=== PATIENT | male | born 2005 | race Hispanic/Latino ===

== ENCOUNTER 2024-06-01 15:39 | Emergency (ER) | payer BC ==
[~2024-06-01] VITALS: Ht 180.3 cm; Wt 83.9 kg
[2024-06-01 15:41] VITALS: BP 162/103; PULSE 112; RESP 16; TEMP 98.2
--- NOTE | 2024-06-01 16:07 | HMCIMG ---
CHEST 1VW HISTORY: Chest pain COMPARISON: None FINDINGS: A frontal projection of the chest was obtained. No acute pulmonary infiltrates is seen. The heart is normal in size. Prominent interstitial markings are seen. No evidence of aortic calcification is seen. IMPRESSION: 1. No acute pulmonary infiltrate is seen. Prominent interstitial markings.
[2024-06-01 16:12] LABS: BASOPHILS # (AUTO) 0.02 K/uL (0.00-0.20); BASOPHILS % (AUTO) 0.3 % (0.0-5.0); EOSINOPHILS # (AUTO) 0.05 K/uL (0.00-0.70); EOSINOPHILS % (AUTO) 0.8 % (0.0-8.0); HEMATOCRIT 44.9 % (42-54); IMMATURE GRANULOCYTE ABSOLUTE 0.02 K/uL (0-1); LYMPHOCYTES # (AUTO) 2.3 K/uL (1.0-4.8); LYMPHOCYTES % (AUTO) 37.9 % (21.0-51.0); MEAN CORPUSCULAR HEMOGLOBIN 28.5 pg (27.0-33.0); MEAN CORPUSCULAR HGB CONC 33.2 g/dL (32.0-36.0); MONOCYTES # (AUTO) 0.6 K/uL (0.1-1.0); MONOCYTES % (AUTO) 9.6 % (3.0-13.0); NEUTROPHILS % (AUTO) 51.1 % (40.0-77.0); PLATELET COUNT (AUTO) 228 K/uL (130-400); RED BLOOD CELL COUNT(AUTO) 5.22 MIL/uL (4.50-6.20); RED CELL DISTRIBUTION WIDTH 12.7 % (11.0-15.5); WHITE BLOOD COUNT (AUTO) 5.9 K/uL (4.8-10.8)
[2024-06-01 16:23] LABS: POTASSIUM 3.7 mmol/L (3.5-5.1)
[2024-06-01] MEDS ORDERED: hydrOXYzine 25 MG TABLET PO ONE (16:30)
[2024-06-01 16:45] LABS: B-TYPE NATRIURETIC PEPTIDE 8 pg/mL (0-100)
--- NOTE | 2024-06-01 18:44 | EKG ---
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
--- NOTE | 2024-06-01 21:07 | NUR ---
MOTHER STATES THEY ARE GOING TO LEAVE, WAIT TO LONG " AND HE IS FEELING BETTER", ENCOURAGED TO STAY. EXPLAINED RISKS OF LEAVING INCLUDING AND NOT LIMITED TO . VERBALIZED UNDERSTANDING. 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
--- NOTE | 2024-06-01 21:49 | ERN ---
ED Note History of Present Illness Stated Complaint: CP, DIZZY Chief Complaint: Chest Pain Time Seen by MD: 15:45 Time Seen by Midlevel: 15:45 Dictation: The patient is a 18-year-old male with no past medical history who presents to the emergency department with complaints of intermediate chest pain. Patient reports stabbing sensation in it intermediate lasting only a few seconds. Reports dizziness but denies any headache, nausea vomiting or diarrhea, fevers, head trauma. Patient reports a feeling anxious. Denies any suicidal or homicidal thoughts. Allergies: Coded Allergies: No Known Drug Allergies (Unverified Allergy, Unknown, 06/01/24) Past Medical History Past Medical History: No Pertinent History Surgical History: Other Surgical History Other: ELBOW SX Review of System Dictation Constitutional: Negative for fever,chills, and weight loss Eyes: Negative for injury, pain,redness, and discharge ENT: Negative for injury,pain or swelling Cardiovascular: Negative for palpitations, and edema positive for chest pain Respiratory: Negative for shortness of breath, cough, and wheezing, Abdomen/GI: Negative for abdominal pain, nausea, vomiting, diarrhea, and constipation Back: Negative for injury and pain : Negative for injury, bleeding and discharge MS/Extremity: Negative for injury and deformity Skin: Negative for rash, and discoloration Neuro: Negative for headache, weakness, numbness, tingling, and seizure Psych: Negative for suicide ideation, homicidal ideation, and hallucinations Initial Vital Sign VS Vital Signs Date Time Temp Pulse Resp B/P (MAP) Pulse Ox O2 Delivery O2 Flow Rate FiO2 06/01/24 15:41 98.2 112 16 162/103 99 Room Air Physical Exam Dictation Vital Signs reviewed General Appearance: Alert, oriented x 3, no acute distress, well developed, nourished. Head and Face: non-traumatic. Eyes: PERRL, pink conjunctivas, eyelid no trauma, anterior chamber with arcus senilis. Ears: Pinnas intact and no signs of trauma or erythema ear canals clear and no discharge TM no erythema Nose: No discharge, no bleeding. Oropharynx: Mouth normal, tongue pink. pharynx clear,no erythema, tonsils no exudates, no abscesses noted, mucous membrane moist Neck: Supple, non-tender, no thyromegaly, no masses, no JVD, no bruits Breast:Deferred Chest:No tenderness, no crepitus, no paradoxical movement, no retractions Lungs:Clear, well-ventilated, symmetric, no rales, no wheezing, no rhonchi, no stridor, good breath sounds bilaterally Heart: Regular rate, regular rhythm, no murmur, no gallops Vascular: no peripheral edema, Abdomen: Soft, positive bowel sounds, nondistended, no guarding, nontender, no rebound, no masses no hepatomegaly, no splenomegaly, no Rahman's s ign, no hernias. Rectal: Deferred Genital: Deferred Neurological: Normal speech, motor function intact, sensory function intact , upper extremities equal and strength, lower extremities equal and strength, no facial droop, no slurred speech Musculoskeletal: Neck nontender, full range of motion, back nontender, full range of motion, Extremities: nontender, full range of motion Skin: Color pink, dry, no turgor, no rash, no lacerations, no abrasions, no contusions. Lymphatic: Deferred Results (Laboratory/Radiology) Laboratory/Radiology Laboratory Tests Test 06/01/24 16:04 06/01/24 16:23 06/01/24 19:54 White Blood Count 5.9 K/uL (4.8-10.8) Red Blood Count 5.22 MIL/uL (4.50-6.20) Hemoglobin 14.9 g/dL (14.0-18.0) Hematocrit 44.9 % (42-54) Mean Corpuscular Volume 86.0 fL (80-100) Mean Corpuscular Hemoglobin 28.5 pg (27.0-33.0) Mean Corpuscular Hemoglobin Concent 33.2 g/dL (32.0-36.0) Red Cell Distribution Width 12.7 % (11.0-15.5) Platelet Count 228 K/uL (130-400) Mean Platelet Volume 9.7 fL (7.5-10.5) Immature Granulocyte % (Auto) 0.3 % (0-1) Neutrophils (%) (Auto) 51.1 % (40.0-77.0) Lymphocytes (%) (Auto) 37.9 % (21.0-51.0) Monocytes (%) (Auto) 9.6 % (3.0-13.0) Eosinophils (%) (Auto) 0.8 % (0.0-8.0) Basophils (%) (Auto) 0.3 % (0.0-5.0) Neutrophils # (Auto) 3.0 K/uL (1.8-7.7) Lymphocytes # (Auto) 2.3 K/uL (1.0-4.8) Monocytes # (Auto) 0.6 K/uL (0.1-1.0) Eosinophils # (Auto) 0.05 K/uL (0.00-0.70) Basophils # (Auto) 0.02 K/uL (0.00-0.20) Absolute Immature Granulocyte (auto 0.02 K/uL (0-1) Nucleated Red Blood Cells 0.0 % (0.0-0.19) Sodium Level 138 mmol/L (136-145) Potassium Level 3.7 mmol/L (3.5-5.1) Chloride Level 102 mmol/L (101-111) Carbon Dioxide Level 31 mmol/L (21-32) Blood Urea Nitrogen 10 mg/dL (7-18) Creatinine 1.0 mg/dL (0.5-1.3) Glomerular Filtration Rate Calc 111 mL/min (>90) Random Glucose 133 mg/dL (70-105) H Total Calcium 9.0 mg/dL (8.5-10.1) Total Creatine Kinase 109 U/L (21-232) Troponin I High Sensitivity < 4 ng/L (4-75) L 6 ng/L (4-75) B-Type Natriuretic Peptide 8 pg/mL (0-100) Troponin I < 0.05 ng/mL (0.00-0.05) REASON: CHEST PAIN ORDERING PHYSICIAN: JADEN CASTILLO MD PROCEDURE: CXR1VW - CHEST 1VW CHEST 1VW HISTORY: Chest pain COMPARISON: None FINDINGS: A frontal projection of the chest was obtained. No acute pulmonary infiltrates is seen. The heart is normal in size. Prominent interstitial markings are seen. No evidence of aortic calcification is seen. IMPRESSION: 1. No acute pulmonary infiltrate is seen. Prominent interstitial markings. Labs Reviewed?: Yes EKG: (+) rhythm (Sinus tachycardia) EKG Comment: Date:06/01/2024 Time:1548 Ventricular rate:118 SC interval:130 QRS duration:104 QT/QTc:314 EKG interpretation: Sinus tachycardia Reviewed by ED Attending no STEMI ED Course ED Course Orders Procedure Category Date Status Time Vital Signs Per CPOE 06/01/24 Transmitted Routine 15:48 B-Type Natriuretic LAB 06/01/24 Complete Peptide 15:48 Chest 1vw RAD 06/01/24 Resulted 15:48 12 Lead Ekg Tracing- EKG 06/01/24 Complete Technical 15:48 Oxygen By Nc/Pulse Ox CPOE 06/01/24 Transmitted 15:48 Maintain Iv CPOE 06/01/24 Transmitted 15:48 Iv Insertion CPOE 06/01/24 Transmitted 15:48 Cardiac Monitoring CPOE 06/01/24 Transmitted 15:48 Pulse Oximetry With CPOE 06/01/24 Transmitted Vs And Prn 15:48 Cbc With Differential LAB 06/01/24 Complete 15:48 Activity: Br W/Brp CPOE 06/01/24 Transmitted With Assist 15:48 Creatine Kinase, Total LAB 06/01/24 Complete 15:48 Urinalysis Profile LAB 06/01/24 Logged 15:48 Troponin Poc Order LAB 06/01/24 Complete Only 15:48 Bedside Troponin-I LAB.ER 06/01/24 Complete (Poc) 15:48 Basic Metabolic Panel LAB 06/01/24 Complete 15:48 Drug Screen Urine LAB 06/01/24 Logged 15:48 Troponin I High LAB 06/01/24 Complete Sensitivity 16:12 Hydroxyzine 25mg Tab PHA 06/01/24 Complete (Atarax 25mg Tab) 16:30 Troponin I High LAB 06/01/24 Complete Sensitivity 19:48 Current Medications Medications (Trade) Dose Ordered Sig/Usha Route PRN Reason Start Time Stop Time Status Last Admin Dose Admin Hydroxyzine HCl (ATArax 25MG TAB) 25 mg ONCE ONCE PO 06/01/24 16:30 06/01/24 16:31 DC Vital Signs Date Time Temp Pulse Resp B/P (MAP) Pulse Ox O2 Delivery O2 Flow Rate FiO2 06/01/24 15:41 98.2 112 16 162/103 99 Room Air HEART Score Response (Comments) Value History: Low suspicion (0) 0 EKG: Repolarization changes 1 Age: < 45yrs (0) 0 Risk Factors: No known risk factors (0) 0 Initial Troponin: Normal limit (0) 0 HEART Score Risk: Low Risk for MACE (1-3) Total 1 Medical Decision Making MDM The patient is a 18-year-old male with no past medical history who presents to the emergency department with complaints of intermediate chest pain. Patient reports stabbing sensation in it intermediate lasting only a few seconds. Reports dizziness but denies any headache, nausea vomiting or diarrhea, fevers, head trauma. Patient reports a feeling anxious. Denies any suicidal or homicidal thoughts. Differential diagnosis, ACS, pneumonia, pneumothorax, anxiety, electrolyte imbalance, dehydration Patient left AMA. Risks and benefits discussed with the patient. DX & DISP Disposition: AMA Departure Condition: Stable Referrals: OLIVIER CARDENAS MD (PCP) ADOLFO MURDOCK [facility] Jun 01, 2024 21:49
== END 2024-06-01 21:09 | disposition left against medical advice (07) ==
LOC: EDH 15:39
DX: R07.89 Other chest pain (principal); R42 Dizziness and giddiness; Z98.890 Other specified postprocedural states
CPT/HCPCS: 36415; 71045; 80048; 82550; 83880; 84484; 85025; 93005; 99284